=== PATIENT | male | born 1945 | race Caucasian/White ===

== ENCOUNTER 2024-08-28 10:03 | Outpatient (OUT) | payer MEDICARE, SELFPAY ==
--- NOTE | 2024-08-28 10:07 | CA_ITS ---
Patient Name: ROCÍO GAMBOA MR#: [id number] : 1945 Exam Date: 08/28/2024 Ordering Doctor: DR BREA BORDEN M.D. ECHOCARDIOGRAM REPORT PROCEDURE: CA ECHO DOPPLER COMPLETE INDICATIONS: Heart failure with reduced ejection fraction COMPARISON: None. DESCRIPTION: COMPLETE ECHOCARDIOGRAM Real-time transthoracic echocardiography with 2D, M-mode, spectral and color flow Doppler performed. QUALITY: Technical quality was good. LEFT VENTRICLE: Normal chamber size. Mild concentric left ventricular hypertrophy. Systolic function is at the lower limits of normal. LV EF: Lower limits of normal left ventricular ejection fraction, (50-55%). DIASTOLIC: Diastolic function is indeterminate. ATRIAL SEPTUM: LEFT ATRIUM: Mild dilatation. RIGHT ATRIUM: Mild dilatation. RIGHT VENTRICLE: Mild dilatation. Normal right ventricular systolic function. TRICUSPID VALVE: Normal mobility and thickness. No stenosis with mild regurgitation. No evidence of pulmonary hypertension. RVSP 21 mmHg MITRAL VALVE: Normal mobility and thickness. No evidence of mitral valve stenosis. There is no mitral annular calcification. Mild mitral regurgitation. AORTIC VALVE: Normal trileaflet appearance. Mildly calcified aortic valve. Mildly diminished mobility. Doppler velocity suggest no aortic valve stenosis. Trivial aortic regurgitation. AORTIC ROOT: Normal diameter and appearance. PULMONIC VALVE: Normal thickness and mobility. No stenosis. Trivial regurgitation. PERICARDIUM: No evidence of pericardial effusion. IVC: Collapses with inspirations. Normal size. PLEURA: CONCLUSION: 1. Mild concentric left ventricular hypertrophy with low normal systolic function. LVEF is estimated at 50 to 55%. 2. Mildly dilated right ventricle with normal systolic function. 3. Mild biatrial dilatation. 4. Mild mitral and tricuspid regurgitation. 5. Normal right-sided pressures. Adult Echocardiography Procedure Report Left Ventricle LVEDD (3.7 - 5.6 cm): 5.09 cm LVESD (2.2 - 4.0 cm): 4.15 cm LVIVS thickness (0.6 - 1.2 cm): 1.22 cm LVPW thickness (0.5 - 1.0 cm): 0.97 cm e': 0.09 m/s E - e': 8.02 LVOT Max Gradient: 1.82 mm[Hg] LVOT Area (cm2): 0.67 m/s Peak Velocity (LVOT): 0.67 m/s Mean Velocity (LVOT): 0.45 m/s LVOT Diameter 2.03 cm Left Ventricular Ejection Fraction: 50 % Left Atrium LA Volume Index (2D A2C): 38.63 ml/m2 Left Atrium Systolic Dimension: 4.26 cm Mitral Valve MV E to A Ratio: 1.26 Mitral Valve A-Wave Peak Velocity: 0.55 m/s Mitral Valve E-Wave Peak Velocity: 0.69 m/s Right Ventricle RV Internal Diastolic Dimension: 4.10 cm Aorta AO Root Diam: 2.75 cm Ascending Ao Diam: 3.33 cm Aortic Valve AoV Area (Peak Harry): 1.52 cm2, 1.52 cm2 AoV Area (VTI): 1.59 cm2, 1.59 cm2 Peak Velocity(Antegrade Flow): 1.43 m/s Peak Gradient(Antegrade Flow): 8.22 mm[Hg] Mean Velocity(Antegrade Flow): 1.01 m/s Mean Gradient(Antegrade Flow): 4.70 mm[Hg] Velocity Time Integral: 33.81 cm Tricuspid Valve Peak Velocity (Regurgitant Flow): 2.11 m/s, 2.13 m/s Pulmonic Valve Mean Gradient: 2.12 mm[Hg], 1.72 mm[Hg] Mean Velocity: 0.69 m/s, 0.60 m/s Peak Velocity: 0.93 m/s Peak Gradient: 3.56 mm[Hg], 3.32 mm[Hg] Right Atrium Right Atrium Systolic Pressure: 50.00 ml, 50.00 ml Dictated by: Brea Borden M.D. on 08/29/2024 at 20:39 Approved by: Brea Borden M.D. on 08/29/2024 at 20:51
== END 2024-08-28 10:04 | disposition home or self-care (01) ==
LOC: CARD 10:06
PROVIDERS: PCP Internal Medicine; Visit Provider Internal Medicine Interventional Cardiology
DX: I50.32 Chronic diastolic (congestive) heart failure (principal)
CPT/HCPCS: 93306